=== PATIENT | female | born 1975 | race African-American/Black ===

== ENCOUNTER 2023-03-07 19:36 | Inpatient (IN) | payer OTHER, SELFPAY ==
[2023-03-07 20:30] LABS: #Basophils 0.2 10x3/uL (0.0-0.2); #Eosinphils 0.2 10x3/uL (0.0-0.5); #Monocytes 0.5 10x3/uL (0.0-1.1); #Neutrophils 4.1 10x3/uL (1.5-8.4); %Basophils 1.8 % (0.0-2.0); %Eosinophils 2.5 % (0.0-6.0); %Lymphocytes 43.7 % (18.0-47.0); %Monocytes 5.2 % (0.0-10.0); %Neutrophils 45.8 % (40.0-75.0); BHCG - Serum Negative (NEGATIVE); Hematocrit 39.5 % (34.9-44.5); Hemoglobin 13.5 g/dL (12.0-15.5); Mean Corpuscular HGB CONC 34.2 g/dL (32.0-36.0); Mean Corpuscular Hemoglobin 32.1 pg (27.0-33.0); Mean Platelet Volume 9.6 fl (7.4-10.4); Platelet Count 392 10x3/uL (150-450); Pregs Control Background? CLEAR/WHITE (CLR/WHITE); Pregs Control Bar Appear? YES (CONTROL BAR); RBC Distribution Width 14.6 % (11.5-14.5); White Blood Cell (WBC) Count 8.9 10x3/uL (3.5-10.5)
[2023-03-07 20:57] LABS: Bilirubin Neg (Negative); Blood, Urine Negative (Negative); Clarity Clear (Clear); Glucose, Urine (Dipstick) Normal (Negative); Ketone, Urine Negative (Negative); Leukocyte 100 (Negative); Nitrite Negative (Negative); Protein, Urine (Dipstick) Negative (Neg-Trace); Specific Gravity, Urine 1.005 (1.005-1.030); Urobilinogen Normal mg/dL (Less than 2)
[2023-03-07 21:17] LABS: Bacteria/HPF None Seen HPF (None Seen); CAUTI Indications for Culture Pelvic or flank pain; RBC/HPF None Seen HPF (0-3); Squamous Epithelial 0-3 HPF (0-3); WBC/HPF 0-3 HPF (0-3)
[2023-03-07 21:18] LABS: Urine Culture Reflex No No
[2023-03-07 22:08] LABS: ALT (SGPT) 47 U/L (8-55); AST (SGOT) 122 U/L (5-34); Albumin 4.5 g/dL (3.5-5.0); Alkaline Phosphatase 49 U/L (40-110); Anion Gap 19 mmol/L (10-20); BUN (Urea Nitrogen) 7 mg/dL (7.0-18.7); Bilirubin, Total 0.9 mg/dL (0.2-1.2); Calc. Creatinine Clearance 0 mL/min (70-130); Calcium 9.3 mg/dL (7.8-10.44); Carbon Dioxide 23 mmol/L (22-29); Chloride 95 mmol/L (98-107); Estimated GFR 83; Globulin 3.9 g/dL (2.4-3.5); Lipase 17 U/L (8-78); Magnesium 2.2 mg/dL (1.6-2.6); Potassium 3.8 mmol/L (3.5-5.1); Protein, Total 8.4 g/dL (6.0-8.3); Sodium 133 mmol/L (136-145)
[2023-03-07 22:15] LABS: Glucose 51 mg/dL (70-105)
[2023-03-07 22:15] LABS: SARS-CoV-2 NAA Rapid Test Not Detected (NotDetected)
[2023-03-08 00:25] LABS: Thyroid Stimulating Hormone 149.2717 uIU/mL (0.35-4.94)
[2023-03-08 00:56] LABS: Free T4 (Free Thyroxine) Less than 0.40 ng/dL (0.70-1.48)
[2023-03-08 02:06] LABS: Lactic Acid 1.9 mmol/L (0.5-2.2)
[2023-03-08] MEDS ORDERED: Guaifenesin DM 100-10/5 ML UDCUP PO PRN (02:10)
[2023-03-08] MEDS ORDERED: Bisacodyl 5 MG TAB PO PRN (02:10)
[2023-03-08] MEDS ORDERED: Acetaminophen 325 MG TAB PO PRN (02:10)
[2023-03-08] MEDS ORDERED: Ondansetron PF 4 MG/2 ML Vial IVP PRN (02:10)
[2023-03-08] MEDS ORDERED: Potassium Chloride 20 MEQ TAB PO SCH (03:00)
[2023-03-08] MEDS ORDERED: Sodium Chloride 0.9% 1,000 ML IV SCH (03:00)
[2023-03-08] MEDS ORDERED: Levothyroxine Sodium 100 MCG TAB PO SCH (03:00)
[2023-03-08 03:11] VITALS: BMI 21.6
[2023-03-08] MEDS: Thiamine HCl 200 MG/2 ML VIAL SLOW IVP SCH (03:26)
[2023-03-08 03:33] LABS: Amphetamine Not Detected (NotDetected); Barbiturates Screen Not Detected (NotDetected); Benzodiazepine Screen Not Detected (NotDetected); Cocaine Metabolite Screen Detected (NotDetected); Methadone Not Detected (NotDetected); Methamphetamine Not Detected (NotDetected); Opiate Screen Not Detected (NotDetected); Oxycodone Screen Not Detected (NotDetected); Phencyclidine (PCP) Not Detected (NotDetected); THC/Cannabinoid Screen Not Detected (NotDetected); Tricyclic Screen Not Detected (NotDetected)
[2023-03-08 03:59] LABS: #Basophils 0.1 10x3/uL (0.0-0.2); #Eosinphils 0.2 10x3/uL (0.0-0.5); #Monocytes 0.4 10x3/uL (0.0-1.1); #Neutrophils 2.9 10x3/uL (1.5-8.4); %Basophils 1.9 % (0.0-2.0); %Eosinophils 3.8 % (0.0-6.0); %Lymphocytes 41.5 % (18.0-47.0); %Monocytes 5.9 % (0.0-10.0); %Neutrophils 46.3 % (40.0-75.0); Hematocrit 40.7 % (34.9-44.5); Hemoglobin 13.6 g/dL (12.0-15.5); Mean Corpuscular HGB CONC 33.4 g/dL (32.0-36.0); Mean Corpuscular Hemoglobin 31.8 pg (27.0-33.0); Mean Corpuscular Volume 95.1 fl (81.6-98.3); Mean Platelet Volume 9.1 fl (7.4-10.4); Platelet Count 426 10x3/uL (150-450); RBC Distribution Width 15.2 % (11.5-14.5); Red Blood Cell (RBC) Count 4.28 10x6/uL (3.90-5.03); White Blood Cell (WBC) Count 6.3 10x3/uL (3.5-10.5)
[2023-03-08 04:06] LABS: Anion Gap 15 mmol/L (10-20); BUN (Urea Nitrogen) 8 mg/dL (7.0-18.7); Calc. Creatinine Clearance 61 mL/min (70-130); Calcium 9.4 mg/dL (7.8-10.44); Carbon Dioxide 28 mmol/L (22-29); Chloride 99 mmol/L (98-107); Estimated GFR 76; Glucose 99 mg/dL (70-105); Magnesium 2.2 mg/dL (1.6-2.6); Potassium 3.8 mmol/L (3.5-5.1); Sodium 138 mmol/L (136-145)
[2023-03-08] MEDS: Nicotine 14 MG PATCH TD SCH (05:57)
[2023-03-08] MEDS ORDERED: FLU VACC QS2023-24(6MOS UP)/PF 60 MCG/0.5 ML SYRINGE IM ONE (08:30)
[2023-03-08] MEDS: Folic Acid 1 MG TAB PO SCH (09:10)
[2023-03-08] MEDS: Multivitamin W/ Minerals 1 TAB PO SCH (09:10)
[2023-03-08] MEDS: Polyethylene Glycol 3350 17 GM Packet PO SCH (09:10)
[2023-03-08] MEDS: Senokot S 8.6-50 MG TAB PO SCH ×2 (09:10→21:31)
[2023-03-09] MEDS: Thiamine HCl 200 MG/2 ML VIAL SLOW IVP SCH (06:32)
[2023-03-09] MEDS: Levothyroxine Sodium 88 MCG TAB PO SCH (06:33)
[2023-03-09] MEDS: Nicotine 14 MG PATCH TD SCH (06:34)
[2023-03-09 08:20] LABS: Free T4 (Free Thyroxine) Less than 0.40 ng/dL (0.70-1.48)
[2023-03-09] MEDS: Polyethylene Glycol 3350 17 GM Packet PO SCH (08:51)
[2023-03-09] MEDS: Folic Acid 1 MG TAB PO SCH (08:51)
[2023-03-09] MEDS: Multivitamin W/ Minerals 1 TAB PO SCH (08:51)
[2023-03-09] MEDS: Senokot S 8.6-50 MG TAB PO SCH ×2 (08:54→21:22)
[2023-03-09] MEDS ORDERED: Bisacodyl 10 MG SUPP PR PRN (13:36)
[2023-03-10] MEDS: Thiamine HCl 200 MG/2 ML VIAL SLOW IVP SCH (03:24)
[2023-03-10 05:31] LABS: Cardiac Risk 4.2 (Less than 4.5)
[2023-03-10] MEDS: Nicotine 14 MG PATCH TD SCH (06:25)
[2023-03-10] MEDS: Levothyroxine Sodium 88 MCG TAB PO SCH (06:25)
[2023-03-10] MEDS: Polyethylene Glycol 3350 17 GM Packet PO SCH (08:32)
[2023-03-10] MEDS: Folic Acid 1 MG TAB PO SCH (08:33)
[2023-03-10] MEDS: Senokot S 8.6-50 MG TAB PO SCH ×2 (08:33→20:58)
[2023-03-10] MEDS: Multivitamin W/ Minerals 1 TAB PO SCH (08:33)
[2023-03-10] MEDS ORDERED: Ketorolac Tromethamine 30 MG/ML VIAL IVP PRN (12:13)
[2023-03-10] MEDS ORDERED: Mineral Oil ENEMA PR SCH (12:15)
[2023-03-11] MEDS: Thiamine HCl 200 MG/2 ML VIAL SLOW IVP SCH ×2 (03:27→03:28)
[2023-03-11] MEDS ORDERED: Mineral Oil ENEMA PR SCH (03:30)
[2023-03-11] MEDS: Levothyroxine Sodium 88 MCG TAB PO SCH (05:35)
[2023-03-11] MEDS: Nicotine 14 MG PATCH TD SCH (05:36)
[2023-03-11] MEDS: Polyethylene Glycol 3350 17 GM Packet PO SCH (09:07)
[2023-03-11] MEDS: Senokot S 8.6-50 MG TAB PO SCH ×2 (09:07→22:26)
[2023-03-11] MEDS: Multivitamin W/ Minerals 1 TAB PO SCH (09:08)
[2023-03-11] MEDS: Folic Acid 1 MG TAB PO SCH (09:08)
[2023-03-11] MEDS: Thiamine 100 MG TAB PO SCH (09:08)
[2023-03-11] MEDS: valACYclovir 500 MG TAB PO SCH ×2 (15:08→22:26)
[2023-03-11] MEDS ORDERED: GoLYTELY 4,000 ml Bottle PO SCH (18:00)
[2023-03-12] MEDS: Levothyroxine Sodium 88 MCG TAB PO SCH (05:47)
[2023-03-12] MEDS: Nicotine 14 MG PATCH TD SCH (05:47)
[2023-03-12] MEDS: Multivitamin W/ Minerals 1 TAB PO SCH (09:41)
[2023-03-12] MEDS: Senokot S 8.6-50 MG TAB PO SCH ×2 (09:41→20:06)
[2023-03-12] MEDS: Thiamine 100 MG TAB PO SCH (09:41)
[2023-03-12] MEDS: Folic Acid 1 MG TAB PO SCH (09:41)
[2023-03-12] MEDS: valACYclovir 500 MG TAB PO SCH ×3 (09:42→20:06)
[2023-03-12] MEDS: Polyethylene Glycol 3350 17 GM Packet PO SCH (09:42)
[2023-03-13 04:44] VITALS: BP 124/84; TEMP 98.9
[2023-03-13] MEDS: Nicotine 14 MG PATCH TD SCH (05:51)
[2023-03-13] MEDS: Levothyroxine Sodium 88 MCG TAB PO SCH (05:51)
[2023-03-16 23:37] LABS: HSV 1 - DNA Negative (Negative); HSV 2 - DNA Negative (Negative)
== END 2023-03-13 06:40 | disposition home or self-care (01) | DRG 644 ==
LOC: CSHERS 19:36 → CSHTELE 03-08 02:09 → OBSVTOIN 03-09 13:30
PROVIDERS: ADMIT Student in an Organized Health Care Education/Training Program; ATTEND Internal Medicine
DX: E03.9 Hypothyroidism, unspecified (principal); B01.9 Varicella without complication; E87.20 Acidosis, unspecified; M86.8X7 Other osteomyelitis, ankle and foot; E87.21 Acute metabolic acidosis; I10 Essential (primary) hypertension; E87.1 Hypo-osmolality and hyponatremia; F17.210 Nicotine dependence, cigarettes, uncomplicated; F19.10 Other psychoactive substance abuse, uncomplicated; K59.00 Constipation, unspecified; R53.1 Weakness; B02.9 Zoster without complications; E16.2 Hypoglycemia, unspecified; Z11.52 Encounter for screening for COVID-19; Z79.890 Hormone replacement therapy; Z79.899 Other long term (current) drug therapy; Z98.890 Other specified postprocedural states
CPT/HCPCS: 36415; 36416; 71045; 74018; 74177; 80048; 80053; 80061; 80306; 81001; 82533; 83605; 83690; 83735; 83880; 84439; 84443; 84703; 85025; 86140; 87040; 87529; 87798; 93005; 93306; 93923; 96360; 96361; 96372; 96374; 96376; G0378; J1650; J1885; J3411; J7050